=== PATIENT | female | born 1985 | race Two or more races ===

== ENCOUNTER 2016-03-14 02:02 | Emergency (ER) | payer BC, MEDICAID ==
[2016-03-14] MEDS ORDERED: ACETAMINOPHEN 325 MG TABLET PO ONE (02:18)
[2016-03-14 02:52] LABS: APPEARANCE,URINE CLOUDY; BILIRUBIN,URINE NEGATIVE (NEGATIVE); GLUCOSE, URINE 150 mg/dL (NEGATIVE); KETONES,URINE 20 mg/dL (NEGATIVE); LEUKOCYTE ESTERASE,URINE LARGE (NEGATIVE); NITRITE,URINE POSITIVE (NEGATIVE); PROTEIN,URINE 100 mg/dL (NEGATIVE); URINE SPECIFIC GRAVITY 1.018
[2016-03-14 03:40] LABS: ALANINE AMINOTRANSFERASE 20 U/L (9-52); ALBUMIN 4.2 g/dL (3.5-5.0); ALKALINE PHOSPHATASE 89 U/L (38-126); ANION GAP 13 (5-19); ASPARTATE AMINO TRANSFERASE 21 U/L (14-36); BILIRUBIN,TOTAL 1.5 mg/dL (0.2-1.3); BLOOD UREA NITROGEN 11 mg/dL (7-20); CALCIUM 9.3 mg/dL (8.4-10.2); CARBON DIOXIDE 26 mmol/L (22-30); CHLORIDE 98 mmol/L (98-107); CREATININE RESULT 0.82 mg/dL (0.52-1.25); GLUCOSE 144 mg/dL (75-110); LIPASE 32.4 U/L (23-300); POTASSIUM 4.3 mmol/L (3.6-5.0); SODIUM 137.2 mmol/L (137-145); TOTAL PROTEIN 7.3 g/dL (6.3-8.2)
[2016-03-14 03:48] LABS: HEMATOCRIT 43.8 % (36.0-47.0); HEMOGLOBIN 15.2 g/dL (12.0-15.5); HGB HCT DIFFERENCE 1.8; MEAN CORPUSCULAR HEMOGLOBIN 29.9 pg (27.0-33.4); MEAN CORPUSCULAR HGB CONC 34.8 g/dL (32.0-36.0); MEAN CORPUSCULAR VOLUME 86 fl (80-97); RED CELL DISTRIBUTION WIDTH 12.3 % (11.5-14.0); WHITE BLOOD COUNT 14.3 10^3/uL (4.0-10.5)
[2016-03-14 04:15] LABS: BAND NEUTROPHILS % (MANUAL) 3 % (3-5); BASOPHILS % (MANUAL) 0 % (0-2); EOSINOPHILS % (MANUAL) 0 % (0-6); LYMPHOCYTES % (MANUAL) 15 % (13-45); TOTAL CELLS COUNTED 100
[2016-03-14 04:16] LABS: OVALOCYTES SLIGHT; POIKILOCYTOSIS SLIGHT; TOXIC GRANULATION SLIGHT; TOXIC VACUOLATION PRESENT
[2016-03-14] MEDS ORDERED: NORMAL SALINE 1000 ML 1,000 ML IV ONE (04:34)
[2016-03-14] MEDS ORDERED: CEFTRIAXONE 1 GM/D5W RTU 50 ML IV ONE (05:25)
--- NOTE | 2016-03-14 05:41 | ER Document Report ---
ED Fever - General Chief Complaint: Fever, back pain, possible UTI Stated Complaint: FEVER,BACK PAIN,URINARY SYMPTOMS Mode of Arrival: Ambulatory Information source: Patient Notes: Patient is a 30-year-old female who presents to the ER today for low back pain, fever, lower abdominal pain 2 days. Patient states that the back pain is worse on the left side but that she has chronic low back pain so she was unsure if this was her chronic pain or not. Patient has been taking Tylenol at home for the fever which has been helping. She denies any dysuria, hematuria, history of kidney stones, nausea, vomiting. TRAVEL OUTSIDE OF THE [place] IN LAST 30 DAYS: No - Related Data Allergies/Adverse Reactions: No Known Allergies Allergy (Unverified 03/14/16 02:21) Past Medical History - General Information source: Patient - Social History Smoking Status: Unknown if Ever Smoked Family History: Reviewed & Not Pertinent Patient has suicidal ideation: No Patient has homicidal ideation: No Renal/ Medical History: Denies: Hx Peritoneal Dialysis Review of Systems - Review of Systems Constitutional: See HPI EENT: No symptoms reported Cardiovascular: No symptoms reported Respiratory: No symptoms reported Gastrointestinal: No symptoms reported Genitourinary: See HPI Female Genitourinary: No symptoms reported Musculoskeletal: No symptoms reported Skin: No symptoms reported Hematologic/Lymphatic: No symptoms reported Neurological/Psychological: No symptoms reported Physical Exam - Vital signs Vitals: Temp Pulse Resp BP Pulse Ox 98.2 F 89 16 103/63 99 03/14/16 05:10 03/14/16 05:10 03/14/16 05:10 03/14/16 05:10 03/14/16 05:10 - Notes Notes: PHYSICAL EXAMINATION: GENERAL: Mildly ill-appearing, but in no acute distress. HEAD: Atraumatic, normocephalic. EYES: Pupils equal round and reactive to light, extraocular movements intact, sclera anicteric, conjunctiva are normal. NECK: Normal range of motion, supple without lymphadenopathy LUNGS: CTAB and equal. No wheezes rales or rhonchi. HEART: Regular rate and rhythm without murmurs ABDOMEN: Soft, mild suprapubic tenderness. No guarding, no rebound BACK: no vertebral tenderness, normal ROM GI/: Left CVA tenderness EXTREMITIES: Normal range of motion, no pitting edema. No cyanosis. NEUROLOGICAL: Cranial nerves grossly intact. Normal sensory/motor exams. PSYCH: Normal mood, normal affect. SKIN: Warm, Dry, normal turgor, no rashes or lesions noted Course - Re-evaluation Re-evalutation: 03/14/16 06:23 Patient has a white count of 14.3 and leukocytes, nitrites, he blood on urinalysis with greater than 182 white blood cells. Other lab work is unremarkable today. Patient's vital signs are normal upon discharge. She states she feels much better after IV fluids, Rocephin and Tylenol. 03/14/16 06:23 - Vital Signs Vital signs: Temp Pulse Resp BP Pulse Ox 98.2 F 89 16 103/63 99 03/14/16 05:10 03/14/16 05:10 03/14/16 05:10 03/14/16 05:10 03/14/16 05:10 - Laboratory Result Diagrams: 03/14/16 03:15 03/14/16 03:15 Laboratory results interpreted by me: 03/14/16 03/14/16 03/14/16 02:20 03:15 03:15 WBC 14.3 H Abs Neuts (Manual) 10.4 H Abs Monocytes (Manual) 1.7 H Glucose 144 H Total Bilirubin 1.5 H Urine Protein 100 H Urine Glucose (UA) 150 H Urine Ketones 20 H Urine Blood SMALL H Urine Nitrite POSITIVE H Urine Urobilinogen 4.0 H Ur Leukocyte Esterase LARGE H Urine Ascorbic Acid 40 H Discharge - Discharge Clinical Impression: UTI (urinary tract infection) Qualifiers: Urinary tract infection type: acute pyelonephritis Qualified Code(s): N10 - Acute pyelonephritis Condition: Stable Disposition: HOME, SELF-CARE Instructions: Urinary Tract Infection ([facility]) Additional Instructions: Please drink plenty of fluids. Return immediately for any new or worsening symptoms. Follow up with primary care provider, call tomorrow to make followup appointment. Prescriptions: Ciprofloxacin HCl [Cipro 500 mg Tablet] 500 mg PO BID #20 tablet Hydrocodone/Acetaminophen [[place]am 5-325 mg Tablet] 1 tab PO Q4 PRN #15 tablet PRN Reason: Forms: Return to Work
[2016-03-14] MEDS ORDERED: HYDROCODONE/ACETAMINOPHEN 5-325 MG 6 TAB/DSPK PO PRN (06:29)
[2016-03-14 06:54] VITALS: BP 115/78
== END 2016-03-14 06:50 | disposition home or self-care (01) ==
LOC: ER 02:02
DX: N10 Acute pyelonephritis (principal); R50.9 Fever, unspecified; M54.9 Dorsalgia, unspecified; R39.198 Other difficulties with micturition; R10.30 Lower abdominal pain, unspecified
CPT/HCPCS: 99283; 96365; 36415; 87040; 87086; 83690; 85025; 87088; 80053; 81001; 87186; J7030; J0696